=== PATIENT | female | born 1970 | race Caucasian/White ===

== ENCOUNTER → 2020-11-02 | Outpatient (CLI) | payer BC ==
[~2020-11-02] MED LIST: CELEXA40 MG PO; EDARBYCLOR 40-1 EACH PO; IMDUR ER TAB 3030 MG PO; KLOR-CON M1010 MEQ PO; LIPITOR TAB 1010 MG PO; LOPRESSOR50 MG PO; PROTONIX40 MG PO; SYNTHROID88 MCG PO; VITAMIN B-125000 MC2 PO; VITAMIN D250000 UNIT PO; VITAMIN D3400 UNIT PO; ZYRTEC10 MG PO
== END ==
LOC: MAMO 05-18 09:00
DX: Z12.31 Encounter for screening mammogram for malignant neoplasm of breast (principal)
CPT/HCPCS: 77063; 77067

== ENCOUNTER → 2022-01-15 | Outpatient (CLI) | payer BC | LOC: MAMO 11-08 15:30 | DX: Z12.31 Encounter for screening mammogram for malignant neoplasm of breast (principal) | CPT/HCPCS: 77063; 77067 ==